=== PATIENT | male | born 1990 | race Caucasian/White ===

== ENCOUNTER 2019-05-24 18:56 | Observation (INO) ==
[2019-05-24 20:12] VITALS: BMI 32.7
[2019-05-24 20:23] LABS: BASOPHILS # (AUTO) 0.1 X10^3/uL (0.0-0.1); BASOPHILS % (AUTO) 1.1 % (0.2-1.0); EOSINOPHILS # (AUTO) 0.3 x10^3/uL (0.0-0.2); EOSINOPHILS % (AUTO) 2.9 % (0.9-2.9); HEMATOCRIT 42.8 % (42.0-54.0); LYMPHOCYTES # (AUTO) 2.8 X10^3/uL (1.3-2.9); LYMPHOCYTES % (AUTO) 27.6 % (21.0-51.0); MEAN CORPUSCULAR VOLUME 91.6 fL (80.0-100.0); MEAN PLATELET VOLUME 9.2 fL (7.4-11.0); MONOCYTES # (AUTO) 0.7 x10^3/uL (0.3-0.8); MONOCYTES % (AUTO) 6.9 % (0.0-13.0); NEUTROPHILS # (AUTO) 6.3 x10^3/uL (2.2-4.8); NEUTROPHILS % (AUTO) 61.5 % (42.0-75.0); PLATELET COUNT 264 X10^3/uL (150.0-450.0); RED BLOOD COUNT 4.67 X10^6/uL (4.7-6.0); RED CELL DISTRIBUTION WIDTH 12.5 % (11.6-16.5); WHITE BLOOD COUNT 10.2 X10^3/uL (3.6-10.0)
[2019-05-24 20:33] LABS: ALANINE AMINOTRANSFERASE 63 Units/L (12-78); ALBUMIN 4.2 g/dL (3.4-5.0); ALKALINE PHOSPHATASE 90 Units/L (46-116); ASPARTATE AMINO TRANSFERASE 29 Units/L (15-37); BLOOD UREA NITROGEN 12 mg/dL (7-18); CALCIUM 8.5 mg/dL (8.5-10.1); CARBON DIOXIDE 29.3 mmol/L (21-32); CHLORIDE 101 mmol/L (98-107); COR NA(FOR HYPERGLY) 140 mmol/L (136-145); CREATININE 1.05 mg/dL (0.70-1.30); SODIUM 140 mmol/L (136-145); TOTAL PROTEIN 8.1 g/dL (6.4-8.2); eGFR NON BLACK RACES > 60 (>60)
[2019-05-24] MEDS: PEPCID 20 MG IV PREMIX* 20 MG/50 ML BAG IV SCH (20:48)
[2019-05-24] MEDS: PROTONIX INJ 40 MG VIAL IVP SCH (20:49)
[2019-05-24] MEDS: LEVSIN/MAALOX/LIDOC VISC PO SCH (20:50)
[2019-05-24] MEDS: NS 1000 ML 1,000 ML IV SCH (20:52)
[2019-05-24 22:15] LABS: BILIRUBIN,URINE NEGATIVE (NEGATIVE); BLOOD/HEMOGLOBIN,URINE NEGATIVE (NEGATIVE); GLUCOSE, URINE NEGATIVE (NEGATIVE); KETONES,URINE NEGATIVE (NEGATIVE); LEUKOCYTE ESTERASE ,URINE NEGATIVE (NEGATIVE); NITRITES,URINE NEGATIVE (NEGATIVE); PROTEIN,URINE NEGATIVE (NEGATIVE); UROBILINOGEN,URINE NORMAL (NORMAL)
[2019-05-24 22:21] LABS: APPEARANCE,URINE CLEAR (CLEAR); COLOR,URINE YELLOW (YELLOW)
[2019-05-25 00:05] LABS: HEMATOCRIT 40.4 % (42.0-54.0); HEMOGLOBIN 14.2 g/dL (13.5-18.0)
[2019-05-25] MEDS: NS 1000 ML 1,000 ML IV SCH ×3 (04:05→21:32)
[2019-05-25 05:10] LABS: BASOPHILS # (AUTO) 0.1 X10^3/uL (0.0-0.1); EOSINOPHILS # (AUTO) 0.3 x10^3/uL (0.0-0.2); EOSINOPHILS % (AUTO) 3.2 % (0.9-2.9); HEMATOCRIT 38.9 % (42.0-54.0); HEMOGLOBIN 13.7 g/dL (13.5-18.0); LYMPHOCYTES % (AUTO) 31.7 % (21.0-51.0); MEAN CORPUSCULAR HGB CONC 35.3 g/dL (33.0-35.0); MEAN CORPUSCULAR VOLUME 90.6 fL (80.0-100.0); MEAN PLATELET VOLUME 9.2 fL (7.4-11.0); MONOCYTES # (AUTO) 0.7 x10^3/uL (0.3-0.8); MONOCYTES % (AUTO) 7.2 % (0.0-13.0); NEUTROPHILS # (AUTO) 5.5 x10^3/uL (2.2-4.8); NEUTROPHILS % (AUTO) 56.9 % (42.0-75.0); PLATELET COUNT 224 X10^3/uL (150.0-450.0); RED BLOOD COUNT 4.29 X10^6/uL (4.7-6.0); WHITE BLOOD COUNT 9.6 X10^3/uL (3.6-10.0)
[2019-05-25 05:42] LABS: ALANINE AMINOTRANSFERASE 53 Units/L (12-78); ALBUMIN 3.6 g/dL (3.4-5.0); ALKALINE PHOSPHATASE 78 Units/L (46-116); ASPARTATE AMINO TRANSFERASE 28 Units/L (15-37); BLOOD UREA NITROGEN 12 mg/dL (7-18); CARBON DIOXIDE 26.8 mmol/L (21-32); CHLORIDE 104 mmol/L (98-107); COR NA(FOR HYPERGLY) 141 mmol/L (136-145); CREATININE 0.99 mg/dL (0.70-1.30); SODIUM 140 mmol/L (136-145); TOTAL PROTEIN 7.1 g/dL (6.4-8.2); eGFR NON BLACK RACES > 60 (>60)
[2019-05-25] MEDS: LEVSIN/MAALOX/LIDOC VISC PO SCH ×4 (08:31→20:21)
[2019-05-25] MEDS: PROTONIX INJ 40 MG VIAL IVP SCH ×2 (08:31→20:22)
[2019-05-25] MEDS: PEPCID 20 MG IV PREMIX* 20 MG/50 ML BAG IV SCH ×2 (08:32→20:22)
[2019-05-25] MEDS: TYLENOL 325 MG TAB PO PRN ×2 (09:13→23:09)
[2019-05-25] MEDS ORDERED: NS 1000 ML 1,000 ML IV ONE (09:49)
--- NOTE | 2019-05-25 10:01 | DR.H&P ---
H&P - History & Physical for Day of: H&P Date: 05/24/19 - Chief Complaint Chief Complaint: ABDOMINAL PAIN, VOMITING, BLOOD IN STOOL - History of Present Illness History of Present Illness: IS A 29 YEAR OLD PATIENT OF OURS WHO PRESENTED TO THE HOSPITAL A DIRECT ADMISSION FOR COMPLAINTS OF LOWER ABDOMINAL PAIN, VOMITING, AND PASSING BLOOD IN STOOLS. SYMPTOMS REPORTEDLY STARTED ONE DAY PRIOR AND HAVE PROGRESSIVELY GOTTEN WORSE. ON ARRIVAL TO THE HOSPITAL, VITALS WERE 98.7-85-20-98%-153/77. LABS WERE OBTAINED. ABNORMAL LAB VALUES INCLUDE THE FOLLOWING: WBC 10.2, RBC 4.67, GLUCOSE 118, STOOL POSITIVE FOR OCCULT BLOOD. EKG OBTAINED AND REVEALED: SINUS RHYTHM WITH HR 84. HE WAS STARTED ON NORMAL SALINE AT 125ML/HR, PEPCID IV, PROTONIX IV, AND GI COCKTAIL. WE WILL OBTAIN AN ABDOMINAL XRAY. OTHERWISE, WE PLAN TO FOLLOW UP WITH AM LABS AND CONTINUE TO MONITOR. - Past Medical History Past Medical History: Anxiety, Hypertension - Past Surgical History Surgical History: Appendectomy - Family History Family Medical History: Diabetes Mellitus, Cancer, [place], Hypertension - Social History Does patient currently use any type of tobacco product: No Have you used tobacco products in the last 12 months: No Type of Tobacco Use: None Does any household member use tobacco: No Alcohol Use: Occasionally Drug Use: None Prescription drug monitoring program results: PDMP reviewed and no concerns identified - Medications Home Medications: cefadroxil [From Duricef] Allergy (Verified 05/24/19 19:40) Sulfa (Sulfonamide Antibiotics) [SULFA] Allergy (Verified 05/24/19 19:40) CONTINUE taking the following medications alprazolam 1 tab PO HS 05/24/19 [History] ciprofloxacin HCl 500 mg PO BID 05/24/19 [History] lisinopril 20 mg PO HS 05/24/19 [History] pantoprazole 40 mg PO QDAY 05/24/19 [History] - Review of Systems Constitutional: No Symptoms Reported Eyes: No Symptoms Reported ENT: No Symptoms Reported Respiratory: No Symptoms Reported Cardiovascular: No Symptoms Reported Gastrointestinal: Vomiting, Abdominal Pain, Hematochezia Genitourinary: No Symptoms Reported Musculoskeletal: No Symptoms Reported Skin: No Symptoms Reported Neurological: No Symptoms Reported - Physical Exam Vital Signs: Temperature 98.1 F Pulse Rate [Left Radial] 86 Respiratory Rate 18 Blood Pressure [Right Arm] 119/66 O2 Sat by Pulse Oximetry 96 Oriented: Normal Eyes: Normal Ear: Normal Nose: Normal Throat: Normal Respiratory: Diminished Throughout Cardiovascular: Normal : Normal Auscultation: Bowel Sounds: Normal Palpation: Normal Tenderness: Diffuse, Moderate. negative: Rebound, Guarding, Rigidity Skin: Normal Musculoskeletal: Normal Psychiatric: Normal Mood Description: Calm Affect: Normal Speech Pattern: Clear - Assessment/Plan (1) Abdominal pain Qualifiers: Abdominal location: generalized Qualified Code(s): R10.84 - Generalized abdominal pain Status: Acute Plan: ADMIT, IV PEPCID, IV PROTONIX, GI COCKTAIL, ZOFRAN, CONTINUE TO MONITOR (2) GI bleed Qualifiers: GI bleed type/associated pathology: unspecified gastrointestinal hemorrhage type Qualified Code(s): K92.2 - Gastrointestinal hemorrhage, unspecified Status: Acute - Allergies Allergies/Adverse Reactions: Allergies Allergy/AdvReac Type Severity Reaction Status Date / Time cefadroxil [From Duricef] Allergy Verified 05/24/19 19:40 Sulfa (Sulfonamide Allergy Verified 05/24/19 19:40 Antibiotics) [SULFA]
[2019-05-25 12:01] LABS: HEMATOCRIT 38.8 % (42.0-54.0); HEMOGLOBIN 13.3 g/dL (13.5-18.0)
[2019-05-25] MEDS ORDERED: NS 100 ML IV 100 ML ONE (14:20)
[2019-05-25 18:53] LABS: HEMATOCRIT 38.8 % (42.0-54.0); HEMOGLOBIN 13.4 g/dL (13.5-18.0)
[2019-05-25] MEDS ORDERED: ZESTRIL TAB 20 MG ONE (20:14)
[2019-05-25] MEDS: XANAX PO SCH (20:22)
[2019-05-25] MEDS: ZESTRIL TAB 20 MG PO SCH (20:22)
--- NOTE | 2019-05-25 21:14 | PCM.PROG ---
Progress Note - Progress Note for Day of Date of Exam: 05/25/19 - Subjective Subjective: WAS ADMITTED FOR GI BLEED AND ABDOMINAL PAIN. TODAY, HE IS ALERT AND ORIENTED, LYING IN BED ON MORNING ROUNDS. HE CONTINUES WITH COMPLAINTS OF ABDOMINAL PAIN AND BLOOD IN STOOL. ON EXAMINATION, HEART IS REGULAR IN RATE AND RHYTHM. BILATERAL LUNGS ARE CLEAR TO AUSCULTATION. ABDOMEN IS ROUND, SOFT, AND NOTED WITH DIFFUSE TENDERNESS TO PALPATION. HYPERACTIVE BOWEL SOUNDS NOTED. HIS VITALS THIS MORNING WERE: 98.1-86-18-96%-119/66. LABS WERE OBTAINED. ABNORMAL LAB VALUES INCLUDE THE FOLLOWING: RBC 4.29, HCT 38.9, GLUCOSE 124, CALCIUM 8.0. STOOL POSITIVE FOR OCCULT BLOOD. STOOL ALSO POSITIVE FOR H. PYLORI. URINE CULTURE PENDING. AN ABDOMINAL XRAY WAS OBTAINED ON ADMISSION AND REVEALED: NO ACUTE CARDIOPULMONARY DISEASE. TODAY, WE WILL OBTAIN AN ABDOMEN/PELVIS CT WITH CONTRAST AND BOLUS WITH 1 LITER IV FLUIDS. OTHERWISE, WE WILL CONTINUE WITH CURRENT PLAN OF CARE. WE PLAN TO FOLLOW UP WITH AM LABS AND CONTINUE TO MONITOR. - Past Medical Family Social History Past Med/Fam/Surg Hx: No changes since H&P Allergies: Allergies cefadroxil [From Duricef] Allergy (Verified 05/24/19 19:40) Sulfa (Sulfonamide Antibiotics) [SULFA] Allergy (Verified 05/24/19 19:40) - Review of Systems ROS: No change since H&P - Vital Signs and I&O's Vital Signs: Temperature 98.2 F Pulse Rate [Left Radial] 72 Respiratory Rate 18 Blood Pressure [Right Arm] 126/76 O2 Sat by Pulse Oximetry 97 Intake and Output: Intake & Output 05/23/19 05/24/19 05/25/19 05/26/19 11:59 11:59 11:59 11:59 Intake Total 1566 / 1566 185 / 185 Balance 1566 / 1566 1851 - Physical Exam Oriented: Normal Eyes: Normal Ear: Normal Nose: Normal Throat: Normal Respiratory: Normal Cardiovascular: Normal : Normal Auscultation: Bowel Sounds: Increased Palpation: Normal Tenderness: Diffuse, Moderate. negative: Rebound, Guarding, Rigidity Skin: Normal Musculoskeletal: Normal Psychiatric: Normal Mood Description: Calm Affect: Normal Speech Pattern: Clear - Laboratory and Diagnostics Result Diagrams: 05/25/19 18:28 05/25/19 04:52 Labs: 05/24/19 21:43 Urine,Clean Catch Urine Culture - Preliminary Laboratory WBC 9.6 X10^3/uL (3.6-10.0) 05/25/19 04:52 RBC 4.29 X10^6/uL (4.7-6.0) L 05/25/19 04:52 Hgb 13.4 g/dL (13.5-18.0) L 05/25/19 18:28 Hct 38.8 % (42.0-54.0) L 05/25/19 18:28 MCV 90.6 fL (80.0-100.0) 05/25/19 04:52 MCH 32.0 pg (27.0-34.0) 05/25/19 04:52 MCHC 35.3 g/dL (33.0-35.0) H 05/25/19 04:52 RDW 13.0 % (11.6-16.5) 05/25/19 04:52 Plt Count 224 X10^3/uL (150.0-450.0) 05/25/19 04:52 MPV 9.2 fL (7.4-11.0) 05/25/19 04:52 Neut % (Auto) 56.9 % (42.0-75.0) 05/25/19 04:52 Lymph % (Auto) 31.7 % (21.0-51.0) 05/25/19 04:52 [place] % (Auto) 7.2 % (0.0-13.0) 05/25/19 04:52 Eos % (Auto) 3.2 % (0.9-2.9) H 05/25/19 04:52 Baso % (Auto) 1.0 % (0.2-1.0) 05/25/19 04:52 Neut # (Auto) 5.5 x10^3/uL (2.2-4.8) H 05/25/19 04:52 Lymph # (Auto) 3.0 X10^3/uL (1.3-2.9) H 05/25/19 04:52 [place] # (Auto) 0.7 x10^3/uL (0.3-0.8) 05/25/19 04:52 Eos # (Auto) 0.3 x10^3/uL (0.0-0.2) H 05/25/19 04:52 Baso # (Auto) 0.1 X10^3/uL (0.0-0.1) 05/25/19 04:52 Absolute Nucleated RBC 0.0 /100WBC 05/25/19 04:52 INR Target Range - 05/24/19 20:09 INR 0.99 (0.8-1.3) 05/24/19 20:09 Sodium 140 mmol/L (136-145) 05/25/19 04:52 Corrected Sodium 141 mmol/L (136-145) 05/25/19 04:52 Potassium 3.9 mmol/L (3.5-5.1) 05/25/19 04:52 Chloride 104 mmol/L (98-107) 05/25/19 04:52 Carbon Dioxide 26.8 mmol/L (21-32) 05/25/19 04:52 BUN 12 mg/dL (7-18) 05/25/19 04:52 Creatinine 0.99 mg/dL (0.70-1.30) 05/25/19 04:52 Est GFR (MDRD) Af Amer > 60 (>60) 05/25/19 04:52 Est GFR (MDRD) Non-Af > 60 (>60) 05/25/19 04:52 Glucose 124 mg/dL (65-99) H 05/25/19 04:52 Calcium 8.0 mg/dL (8.5-10.1) L 05/25/19 04:52 Corrected Calcium TNP 05/25/19 04:52 Total Bilirubin 0.60 mg/dL (0.2-1.0) 05/25/19 04:52 AST 28 Units/L (15-37) 05/25/19 04:52 ALT 53 Units/L (12-78) 05/25/19 04:52 Alkaline Phosphatase 78 Units/L (46-116) 05/25/19 04:52 Total Protein 7.1 g/dL (6.4-8.2) 05/25/19 04:52 Albumin 3.6 g/dL (3.4-5.0) 05/25/19 04:52 Globulin 3.5 g/dL (2.5-4.5) 05/25/19 04:52 Albumin/Globulin Ratio 1.0 Ratio (1.1-2.1) L 05/25/19 04:52 Specimen Type Clean catch urine 05/24/19 21:43 Urine Color Yellow (YELLOW) 05/24/19 21:43 Urine Appearance Clear (CLEAR) 05/24/19 21:43 Urine pH 5.0 (5.0 - 8.0) 05/24/19 21:43 Ur Specific [place] 1.020 (1.000-1.030) 05/24/19 21:43 Urine Protein Negative (NEGATIVE) 05/24/19 21:43 Urine Glucose (UA) Negative (NEGATIVE) 05/24/19 21:43 Urine Ketones Negative (NEGATIVE) 05/24/19 21:43 Urine Occult Blood Negative (NEGATIVE) 05/24/19 21:43 Urine Nitrite Negative (NEGATIVE) 05/24/19 21:43 Urine Bilirubin Negative (NEGATIVE) 05/24/19 21:43 Urine Urobilinogen Normal (NORMAL) 05/24/19 21:43 Ur Leukocyte Esterase Negative (NEGATIVE) 05/24/19 21:43 Stool Description 40g,bloody, liquid 05/24/19 21:45 Stl Occult Blood (IFOB) Positive (NEGATIVE) A 05/24/19 21:45 Stool H. pylori Ag Positive (NEGATIVE) A 05/25/19 19:35 Blood Type A POSITIVE 05/24/19 20:09 Antibody Screen Negative 05/24/19 20:09 - Plan (1) Abdominal pain Status: Acute Qualifiers: Abdominal location: generalized Qualified Code(s): R10.84 - Generalized abdominal pain Plan: ABDOMEN/PELVIS CT, IV PEPCID, IV PROTONIX, GI COCKTAIL, ZOFRAN, CONTINUE TO MONITOR (2) GI bleed Status: Acute Qualifiers: GI bleed type/associated pathology: unspecified gastrointestinal hemorrhage type Qualified Code(s): K92.2 - Gastrointestinal hemorrhage, unspecified
[2019-05-25] MEDS ORDERED: TYLENOL 325 MG TAB PO PRN (23:01)
[2019-05-25] MEDS: ZOFRAN INJ 4 MG VIAL IVP PRN (23:10)
[2019-05-25 23:59] LABS: HEMATOCRIT 38.2 % (42.0-54.0); HEMOGLOBIN 13.2 g/dL (13.5-18.0)
[2019-05-26] MEDS: NS 1000 ML 1,000 ML IV SCH ×3 (04:31→21:32)
[2019-05-26 05:04] LABS: BASOPHILS # (AUTO) 0.1 X10^3/uL (0.0-0.1); EOSINOPHILS # (AUTO) 0.3 x10^3/uL (0.0-0.2); EOSINOPHILS % (AUTO) 4.7 % (0.9-2.9); HEMATOCRIT 36.5 % (42.0-54.0); HEMOGLOBIN 12.9 g/dL (13.5-18.0); MEAN CORPUSCULAR HEMOGLOBIN 32.2 pg (27.0-34.0); MEAN CORPUSCULAR HGB CONC 35.5 g/dL (33.0-35.0); MEAN CORPUSCULAR VOLUME 90.7 fL (80.0-100.0); MONOCYTES # (AUTO) 0.5 x10^3/uL (0.3-0.8); MONOCYTES % (AUTO) 7.1 % (0.0-13.0); NEUTROPHILS # (AUTO) 3.4 x10^3/uL (2.2-4.8); NEUTROPHILS % (AUTO) 46.2 % (42.0-75.0); PLATELET COUNT 204 X10^3/uL (150.0-450.0); RED BLOOD COUNT 4.02 X10^6/uL (4.7-6.0); WHITE BLOOD COUNT 7.4 X10^3/uL (3.6-10.0)
[2019-05-26 05:15] LABS: ALANINE AMINOTRANSFERASE 61 Units/L (12-78); ALBUMIN 3.4 g/dL (3.4-5.0); ALKALINE PHOSPHATASE 68 Units/L (46-116); ASPARTATE AMINO TRANSFERASE 26 Units/L (15-37); BLOOD UREA NITROGEN 7 mg/dL (7-18); CALCIUM 7.9 mg/dL (8.5-10.1); CARBON DIOXIDE 26.6 mmol/L (21-32); CHLORIDE 106 mmol/L (98-107); CREATININE 0.86 mg/dL (0.70-1.30); SODIUM 141 mmol/L (136-145); TOTAL PROTEIN 6.7 g/dL (6.4-8.2); eGFR NON BLACK RACES > 60 (>60)
[2019-05-26] MEDS: LEVSIN/MAALOX/LIDOC VISC PO SCH ×4 (08:17→20:13)
[2019-05-26] MEDS: PROTONIX INJ 40 MG VIAL IVP SCH ×2 (08:18→21:32)
[2019-05-26] MEDS: PEPCID 20 MG IV PREMIX* 20 MG/50 ML BAG IV SCH ×2 (08:18→20:19)
[2019-05-26] MEDS: TYLENOL 325 MG TAB PO PRN (08:43)
[2019-05-26] MEDS: ULTRAM PO PRN ×2 (09:55→15:06)
[2019-05-26] MEDS: ZOFRAN INJ 4 MG VIAL IVP PRN (13:12)
[2019-05-26] MEDS: CIPRO IV 400 MG PREMIX* 400 MG/200 ML IV.SOLN. IV SCH ×2 (18:29→21:37)
[2019-05-26] MEDS ORDERED: PHENERGAN INJ 25 MG IM PRN (19:43)
[2019-05-26] MEDS ORDERED: ZESTRIL TAB 20 MG ONE (19:59)
[2019-05-26] MEDS: ZESTRIL TAB 20 MG PO SCH (20:14)
[2019-05-26] MEDS: XANAX PO SCH (20:15)
[2019-05-27] MEDS: NS 1000 ML 1,000 ML IV SCH ×3 (04:08→20:33)
[2019-05-27 05:12] LABS: BASOPHILS % (AUTO) 0.6 % (0.2-1.0); EOSINOPHILS # (AUTO) 0.3 x10^3/uL (0.0-0.2); EOSINOPHILS % (AUTO) 3.9 % (0.9-2.9); HEMATOCRIT 37.2 % (42.0-54.0); HEMOGLOBIN 13.1 g/dL (13.5-18.0); LYMPHOCYTES # (AUTO) 3.3 X10^3/uL (1.3-2.9); MEAN CORPUSCULAR HEMOGLOBIN 32.1 pg (27.0-34.0); MEAN CORPUSCULAR HGB CONC 35.1 g/dL (33.0-35.0); MEAN CORPUSCULAR VOLUME 91.5 fL (80.0-100.0); MEAN PLATELET VOLUME 9.3 fL (7.4-11.0); MONOCYTES # (AUTO) 0.6 x10^3/uL (0.3-0.8); MONOCYTES % (AUTO) 7.4 % (0.0-13.0); NEUTROPHILS # (AUTO) 3.3 x10^3/uL (2.2-4.8); NEUTROPHILS % (AUTO) 44.1 % (42.0-75.0); PLATELET COUNT 200 X10^3/uL (150.0-450.0); RED BLOOD COUNT 4.07 X10^6/uL (4.7-6.0); RED CELL DISTRIBUTION WIDTH 12.3 % (11.6-16.5); WHITE BLOOD COUNT 7.5 X10^3/uL (3.6-10.0)
[2019-05-27 05:23] LABS: ALANINE AMINOTRANSFERASE 52 Units/L (12-78); ALBUMIN 3.4 g/dL (3.4-5.0); ALKALINE PHOSPHATASE 65 Units/L (46-116); ASPARTATE AMINO TRANSFERASE 21 Units/L (15-37); BLOOD UREA NITROGEN 8 mg/dL (7-18); CALCIUM 8.1 mg/dL (8.5-10.1); CARBON DIOXIDE 29.9 mmol/L (21-32); CHLORIDE 105 mmol/L (98-107); CREATININE 0.95 mg/dL (0.70-1.30); SODIUM 141 mmol/L (136-145); TOTAL PROTEIN 6.8 g/dL (6.4-8.2); eGFR NON BLACK RACES > 60 (>60)
--- NOTE | 2019-05-27 08:16 | PCM.PROG ---
Progress Note - Progress Note for Day of Date of Exam: 05/26/19 - Subjective Subjective: WAS ADMITTED FOR GI BLEED AND ABDOMINAL PAIN. ABD/PELVIS CT THAT WAS OBTAINED YESTERDAY REVEALED COLITIS. TODAY, HE IS ALERT AND ORIENTED, LYING IN BED ON MORNING ROUNDS. HE CONTINUES WITH COMPLAINTS OF ABDOMINAL PAIN, HOWEVER, IT IS SLIGHTLY IMPROVED SINCE YESTERDAY. ON EXAMINATION, HEART IS REGULAR IN RATE AND RHYTHM. BILATERAL LUNGS ARE CLEAR TO AUSCULTATION. ABDOMEN IS ROUND, SOFT, AND NOTED WITH DIFFUSE TENDERNESS TO PALPATION. HYPERACTIVE BOWEL SOUNDS NOTED. HIS VITALS THIS MORNING WERE: 98.1-67-18-97%-117/53. LABS WERE OBTAINED. ABNORMAL LAB VALUES INCLUDE THE FOLLOWING: RBC 4.02, HGB 12.9, HCT 36.5, GLUCOSE 102, CALCIUM 7.9. STOOL POSITIVE FOR OCCULT BLOOD. STOOL ALSO POSITIVE FOR H. PYLORI. URINE CULTURE PENDING. TODAY, WE WILL START CIPRO 400MG IV Q12H. OTHERWISE, WE WILL CONTINUE WITH CURRENT PLAN OF CARE. WE PLAN TO FOLLOW UP WITH AM LABS AND CONTINUE TO MONITOR. - Past Medical Family Social History Past Med/Fam/Surg Hx: No changes since H&P Allergies: Allergies cefadroxil [From Duricef] Allergy (Verified 05/24/19 19:40) Sulfa (Sulfonamide Antibiotics) [SULFA] Allergy (Verified 05/24/19 19:40) - Review of Systems ROS: No change since H&P - Vital Signs and I&O's Vital Signs: Temperature 97.7 F Pulse Rate [Left Radial] 57 Respiratory Rate 18 Blood Pressure [Right Arm] 108/60 O2 Sat by Pulse Oximetry 96 Intake and Output: Intake & Output 05/24/19 05/25/19 05/26/19 05/27/19 11:59 11:59 11:59 11:59 Intake Total 1566 / 1566 4652 / 4652 4936 / 4936 Balance 1566 / 1566 4652 / 4652 4936 / 4936 - Physical Exam Oriented: Normal Eyes: Normal Ear: Normal Nose: Normal Throat: Normal Respiratory: Normal Cardiovascular: Normal : Normal Auscultation: Bowel Sounds: Increased Palpation: Normal Tenderness: Diffuse, Moderate. negative: Rebound, Guarding, Rigidity Skin: Normal Musculoskeletal: Normal Psychiatric: Normal Mood Description: Calm Affect: Normal Speech Pattern: Clear, Appropriate - Laboratory and Diagnostics Result Diagrams: 05/27/19 04:44 05/27/19 04:44 Labs: 05/24/19 21:43 Urine,Clean Catch Urine Culture - Final Laboratory WBC 7.5 X10^3/uL (3.6-10.0) 05/27/19 04:44 RBC 4.07 X10^6/uL (4.7-6.0) L 05/27/19 04:44 Hgb 13.1 g/dL (13.5-18.0) L 05/27/19 04:44 Hct 37.2 % (42.0-54.0) L 05/27/19 04:44 MCV 91.5 fL (80.0-100.0) 05/27/19 04:44 MCH 32.1 pg (27.0-34.0) 05/27/19 04:44 MCHC 35.1 g/dL (33.0-35.0) H 05/27/19 04:44 RDW 12.3 % (11.6-16.5) 05/27/19 04:44 Plt Count 200 X10^3/uL (150.0-450.0) 05/27/19 04:44 MPV 9.3 fL (7.4-11.0) 05/27/19 04:44 Neut % (Auto) 44.1 % (42.0-75.0) 05/27/19 04:44 Lymph % (Auto) 44.0 % (21.0-51.0) 05/27/19 04:44 [place] % (Auto) 7.4 % (0.0-13.0) 05/27/19 04:44 Eos % (Auto) 3.9 % (0.9-2.9) H 05/27/19 04:44 Baso % (Auto) 0.6 % (0.2-1.0) 05/27/19 04:44 Neut # (Auto) 3.3 x10^3/uL (2.2-4.8) 05/27/19 04:44 Lymph # (Auto) 3.3 X10^3/uL (1.3-2.9) H 05/27/19 04:44 [place] # (Auto) 0.6 x10^3/uL (0.3-0.8) 05/27/19 04:44 Eos # (Auto) 0.3 x10^3/uL (0.0-0.2) H 05/27/19 04:44 Baso # (Auto) 0.0 X10^3/uL (0.0-0.1) 05/27/19 04:44 Absolute Nucleated RBC 0.1 /100WBC 05/27/19 04:44 INR Target Range - 05/24/19 20:09 INR 0.99 (0.8-1.3) 05/24/19 20:09 Sodium 141 mmol/L (136-145) 05/27/19 04:44 Corrected Sodium TNP 05/27/19 04:44 Potassium 4.0 mmol/L (3.5-5.1) 05/27/19 04:44 Chloride 105 mmol/L (98-107) 05/27/19 04:44 Carbon Dioxide 29.9 mmol/L (21-32) 05/27/19 04:44 BUN 8 mg/dL (7-18) 05/27/19 04:44 Creatinine 0.95 mg/dL (0.70-1.30) 05/27/19 04:44 Est GFR (MDRD) Af Amer > 60 (>60) 05/27/19 04:44 Est GFR (MDRD) Non-Af > 60 (>60) 05/27/19 04:44 Glucose 101 mg/dL (65-99) H 05/27/19 04:44 Calcium 8.1 mg/dL (8.5-10.1) L 05/27/19 04:44 Corrected Calcium TNP 05/27/19 04:44 Total Bilirubin 0.30 mg/dL (0.2-1.0) 05/27/19 04:44 AST 21 Units/L (15-37) 05/27/19 04:44 ALT 52 Units/L (12-78) 05/27/19 04:44 Alkaline Phosphatase 65 Units/L (46-116) 05/27/19 04:44 Total Protein 6.8 g/dL (6.4-8.2) 05/27/19 04:44 Albumin 3.4 g/dL (3.4-5.0) 05/27/19 04:44 Globulin 3.4 g/dL (2.5-4.5) 05/27/19 04:44 Albumin/Globulin Ratio 1.0 Ratio (1.1-2.1) L 05/27/19 04:44 Specimen Type Clean catch urine 05/24/19 21:43 Urine Color Yellow (YELLOW) 05/24/19 21:43 Urine Appearance Clear (CLEAR) 05/24/19 21:43 Urine pH 5.0 (5.0 - 8.0) 05/24/19 21:43 Ur Specific [place] 1.020 (1.000-1.030) 05/24/19 21:43 Urine Protein Negative (NEGATIVE) 05/24/19 21:43 Urine Glucose (UA) Negative (NEGATIVE) 05/24/19 21:43 Urine Ketones Negative (NEGATIVE) 05/24/19 21:43 Urine Occult Blood Negative (NEGATIVE) 05/24/19 21:43 Urine Nitrite Negative (NEGATIVE) 05/24/19 21:43 Urine Bilirubin Negative (NEGATIVE) 05/24/19 21:43 Urine Urobilinogen Normal (NORMAL) 05/24/19 21:43 Ur Leukocyte Esterase Negative (NEGATIVE) 05/24/19 21:43 Stool Description 40g,bloody, liquid 05/24/19 21:45 Stl Occult Blood (IFOB) Positive (NEGATIVE) A 05/24/19 21:45 Stool H. pylori Ag Positive (NEGATIVE) A 05/25/19 19:35 Blood Type A POSITIVE 05/24/19 20:09 Antibody Screen Negative 05/24/19 20:09 - Plan (1) Abdominal pain Status: Acute Qualifiers: Abdominal location: generalized Qualified Code(s): R10.84 - Generalized abdominal pain Plan: ABDOMEN/PELVIS CT, IV PEPCID, IV PROTONIX, GI COCKTAIL, ZOFRAN, CONTINUE TO MONITOR (2) GI bleed Status: Acute Qualifiers: GI bleed type/associated pathology: unspecified gastrointestinal hemorrhage type Qualified Code(s): K92.2 - Gastrointestinal hemorrhage, unspecified (3) Colitis Status: Acute Plan: CIPRO 400MG IV Q12H, PEPCID IV, PROTONIX IV, GI COCKTAIL, CONTINUE TO MO NITOR
[2019-05-27] MEDS: PEPCID 20 MG IV PREMIX* 20 MG/50 ML BAG IV SCH ×2 (09:32→20:31)
[2019-05-27] MEDS: LEVSIN/MAALOX/LIDOC VISC PO SCH ×4 (09:34→20:30)
[2019-05-27] MEDS: PROTONIX INJ 40 MG VIAL IVP SCH ×2 (09:35→20:33)
[2019-05-27] MEDS: VIBRAMYCIN 100 MG in D5W 250 ML IV 250 ML IV SCH ×2 (10:27→20:32)
[2019-05-27] MEDS: ZOFRAN INJ 4 MG VIAL IVP PRN (19:54)
[2019-05-27] MEDS ORDERED: ZESTRIL TAB 20 MG ONE (20:24)
[2019-05-27] MEDS: XANAX PO SCH (20:32)
[2019-05-27] MEDS: ZESTRIL TAB 20 MG PO SCH (20:32)
[2019-05-28] MEDS: NS 1000 ML 1,000 ML IV SCH ×2 (05:47→12:31)
[2019-05-28 06:02] LABS: BASOPHILS % (AUTO) 0.6 % (0.2-1.0); EOSINOPHILS # (AUTO) 0.3 x10^3/uL (0.0-0.2); EOSINOPHILS % (AUTO) 3.9 % (0.9-2.9); HEMOGLOBIN 13.4 g/dL (13.5-18.0); LYMPHOCYTES # (AUTO) 3.2 X10^3/uL (1.3-2.9); LYMPHOCYTES % (AUTO) 40.5 % (21.0-51.0); MEAN CORPUSCULAR HEMOGLOBIN 32.1 pg (27.0-34.0); MEAN CORPUSCULAR HGB CONC 35.2 g/dL (33.0-35.0); MEAN CORPUSCULAR VOLUME 91.2 fL (80.0-100.0); MEAN PLATELET VOLUME 8.9 fL (7.4-11.0); MONOCYTES # (AUTO) 0.5 x10^3/uL (0.3-0.8); MONOCYTES % (AUTO) 6.2 % (0.0-13.0); NEUTROPHILS # (AUTO) 3.9 x10^3/uL (2.2-4.8); NEUTROPHILS % (AUTO) 48.8 % (42.0-75.0); PLATELET COUNT 201 X10^3/uL (150.0-450.0); RED BLOOD COUNT 4.17 X10^6/uL (4.7-6.0); RED CELL DISTRIBUTION WIDTH 12.4 % (11.6-16.5)
[2019-05-28 06:18] LABS: ALANINE AMINOTRANSFERASE 55 Units/L (12-78); ALBUMIN 3.5 g/dL (3.4-5.0); ALKALINE PHOSPHATASE 73 Units/L (46-116); ASPARTATE AMINO TRANSFERASE 22 Units/L (15-37); BLOOD UREA NITROGEN 9 mg/dL (7-18); CALCIUM 8.2 mg/dL (8.5-10.1); CARBON DIOXIDE 30.4 mmol/L (21-32); CHLORIDE 104 mmol/L (98-107); CREATININE 1.02 mg/dL (0.70-1.30); SODIUM 142 mmol/L (136-145); TOTAL PROTEIN 7.2 g/dL (6.4-8.2); eGFR NON BLACK RACES > 60 (>60)
[2019-05-28] MEDS: PEPCID 20 MG IV PREMIX* 20 MG/50 ML BAG IV SCH (08:14)
[2019-05-28] MEDS: VIBRAMYCIN 100 MG in D5W 250 ML IV 250 ML IV SCH (08:16)
[2019-05-28] MEDS: PROTONIX INJ 40 MG VIAL IVP SCH (08:18)
[2019-05-28] MEDS: LEVSIN/MAALOX/LIDOC VISC PO SCH (08:19)
[2019-05-28 08:25] VITALS: BP 104/65
== END 2019-05-28 12:30 | disposition home or self-care (01) ==
LOC: MED/SURG
PROVIDERS: ADMIT Internal Medicine; ATTEND Internal Medicine
DX: I10 Essential (primary) hypertension; F41.8 Other specified anxiety disorders; K92.2 Gastrointestinal hemorrhage, unspecified; K52.89 Other specified noninfective gastroenteritis and colitis; Z79.899 Other long term (current) drug therapy; R10.84 Generalized abdominal pain; B96.81 Helicobacter pylori [H. pylori] as the cause of diseases classified elsewhere; K76.0 Fatty (change of) liver, not elsewhere classified
CPT/HCPCS: 36415; 74022; 74177; 80053; 81003; 82270; 85014; 85018; 85025; 85610; 86850; 86900; 86901; 87086; 87338; 93005; 96367; 96374; A4222; C9113; S0028; G0378; J0744; J2405; J2550; J3490; J7030; J7060